=== PATIENT | female | born 1965 | race Caucasian/White ===

== ENCOUNTER 2016-11-15 11:23 | Emergency (ER) | payer MEDICAID ==
[~2016-11-15] VITALS: Wt 64.0 kg
[~2016-11-15 11:23] MED LIST: ATEN100T
[2016-11-15 14:18] LABS: BASOPHILS % 0.7 % (0.0-2.0); EOSINOPHILS # 0.4 10^3/ul (0.0-0.5); EOSINOPHILS % 6.3 % (0.0-7.0); HEMATOCRIT 42.8 % (37.0-47.0); HEMOGLOBIN 14.7 g/dl (12.0-16.0); LYMPHOCYTES # 2.2 10^3/ul (0.8-2.9); LYMPHOCYTES % 36.8 % (15.0-51.0); MEAN CORPUSCULAR HEMOGLOBIN 31.6 pg (29.0-33.0); MEAN CORPUSCULAR HGB CONC 34.4 g/dl (32.0-37.0); MEAN CORPUSCULAR VOLUME 91.8 fl (82.0-101.0); MEAN PLATELET VOLUME 7.3 fl (7.4-10.4); MONOCYTE # 0.4 10^3/ul (0.3-0.9); MONOCYTES % 6.4 % (0.0-11.0); NEUTROPHILS % 49.8 % (39.0-77.0); PLATELET COUNT 322 10^3/UL (140-440); RED BLOOD COUNT 4.66 10^6/ul (4.20-5.40); RED CELL DISTRIBUTION WIDTH 13.6 % (11.5-14.5)
[2016-11-15] MEDS ORDERED: LOSA50TA6 PO (14:28)
[2016-11-15] MEDS ORDERED: ASPI81TA3 PO (14:29)
[2016-11-15 14:33] LABS: CHLORIDE 100 mmol/L (97-110); INR 0.88; POTASSIUM 4.1 mmol/L (3.5-5.1); PROTIME 11.9 Sec (12.2-14.2); PT RATIO 0.9; SODIUM 143 mmol/L (135-144)
[2016-11-15 14:34] LABS: PARTIAL THROMBOPLASTIN TIME 27.8 Sec (25.0-35.0)
--- NOTE | 2016-11-15 14:34 | RADRPT ---
PROCEDURE: XR Chest. CLINICAL INDICATION: chest pain TECHNIQUE: Single frontal view of the chest was obtained COMPARISON: None FINDINGS: The heart and mediastinum are within normal limits. The lungs are clear. There is no pleural effusion or pneumothorax. RPTAT: AA IMPRESSION: No acute disease. .Mike Saenz MD, Date Time Electronically viewed and signed by .Mike Saenz MD, on 11/15/2016 14:34 .S/
[2016-11-15 14:36] LABS: ANION GAP 17 (8-16); BLOOD UREA NITROGEN 14 mg/dl (7-20); CARBON DIOXIDE 30 mmol/L (21-31); CREATININE 0.68 mg/dl (0.44-1.00); GLUCOSE 88 mg/dl (70-220)
[2016-11-15 14:57] LABS: CONDITION 1
[2016-11-15 15:21] LABS: TROPONIN-I < 0.012 ng/ml (0.00-0.12)
[2016-11-15 15:23] VITALS: BP 127/101; PULSE 71; RESP 18
--- NOTE | 2016-11-15 15:37 | ERD ---
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 no diaphoresis HPI This is a 51-year-old female who presents to the emergency room for evaluation of palpitations. Patient states that she intermittently feels her heart beating quickly. She states that she sometimes get a headache with these palpitations. And mild shortness of breath. She denies any temporal factors for these palpitations and came to the ER today for evaluation. ROS All systems reviewed and are negative except as per history of present illness. Medications Home Meds Reported Medications Aspirin* (Aspirin* Chew) 81 Mg Tab.chew, 81 MG PO DAILY, TAB.CHEW 11/15/16 Losartan Potassium* (Losartan Potassium*) 50 Mg Tablet, 50 MG PO DAILY, TAB 11/15/16 Discontinued Reported Medications Atenolol* (Atenolol*) 100 Mg Tablet 12/25/11 Allergies Allergies: Coded Allergies: No Known Allergy (Unverified , 12/25/11) PMhx/Soc History of Surgery: No Anesthesia Reaction: No Hx Neurological Disorder: No Hx Respiratory Disorders: No Hx Cardiac Disorders: Yes (HTN) Hx Psychiatric Problems: No Hx Miscellaneous Medical Probl: No Hx Alcohol Use: No Hx Substance Use: No Hx Tobacco Use: No Smoking Status: Never smoker Physical Exam Vitals Vital Signs Date Time Temp Pulse Resp B/P Pulse Ox O2 Delivery O2 Flow Rate FiO2 11/15/16 15:23 71 18 127/101 99 Room Air 11/15/16 14:44 73 18 113/93 99 Room Air 11/15/16 11:30 98.8 77 21 160/95 96 Physical Exam INITIAL VITAL SIGNS: Reviewed by me GENERAL: The patient is well developed and appropriate for usual state of health in no apparent distress HEENT: Pupils equal, round, and reactive to light. EOMI. There is no scleral icterus. NECK: C-spine is soft and supple, there is no meningismus. There is no cervical lymphadenopathy. LUNGS: Clear to auscultation bilaterally. There are no rales, wheezes or rhonchi. HEART: Regular rate with extra beat, no murmurs, clicks, rubs or gallops. ABDOMEN: Soft, non-tender, non-distended. There are bowel sounds in all four quadrants. No rebound or guarding. EXTREMITIES: There is no peripheral cyanosis or edema. No focal swelling or erythema. NEUROLOGICAL: The patient moves all four extremities with 5/5 strength. Cranial nerves II - XII are intact. Normal gait. Alert and oriented SKIN: There is no apparent rash or petechiae. HEME/LYMPHATIC: There is no evidence of excessive bruising or lymphedema. PSYCHIATRIC: The patient does not appear anxious or depressed. Result Diagram: 11/15/16 1346 11/15/16 1346 Results 24 hrs Laboratory Tests Test 11/15/16 13:46 Activated Partial Thromboplast Time 27.8Sec Anion Gap 17 Basophils # 0.010^3/ul Basophils % 0.7% Blood Morphology Comment Blood Urea Nitrogen 14mg/dl Calcium Level 10.0mg/dl Carbon Dioxide Level 30mmol/L Chloride Level 100mmol/L Creatinine 0.68mg/dl Eosinophils # 0.410^3/ul Eosinophils % 6.3% Glucose Level 88mg/dl Hematocrit 42.8% Hemoglobin 14.7g/dl INR International Normalized Ratio 0.88 Lymphocytes # 2.210^3/ul Lymphocytes % 36.8% Mean Corpuscular Hemoglobin 31.6pg Mean Corpuscular Hemoglobin Concent 34.4g/dl Mean Corpuscular Volume 91.8fl Mean Platelet Volume 7.3fl Monocytes # 0.410^3/ul Monocytes % 6.4% Neutrophils # 3.010^3/ul Neutrophils % 49.8% Nucleated Red Blood Cells # 0.010^3/ul Nucleated Red Blood Cells % 0.0/100WBC Platelet Count 62095^3/UL Potassium Level 4.1mmol/L Prothrombin Time 11.9Sec Prothrombin Time Ratio 0.9 Red Blood Count 4.6610^6/ul Red Cell Distribution Width 13.6% Sodium Level 143mmol/L Troponin I < 0.012ng/ml White Blood Count 6.010^3/ul Procedures/MDM EKG: Rate/Rhythm: [Normal Sinus Rhythm] QRS, ST, T-waves: [No changes consistent w/ acute ischemia] Impression: [No evidence of ischemia or arrhythmia] Chest X-ray 1V Interpreted by me: Soft Tissue: No acute abnormalities Bones: No acute abnormalities Mediastinum/Cardiac Silhouette/Lungs: [No acute abnormalities] This 51-year-old female presents to the ER for evaluation of palpitations. When I evaluated this patient I did auscultate palpitations. EKG does not reveal palpitations. This patient had lab work drawn including a troponin which is normal. X-ray is clear. She is hemodynamically stable at this time. This patient will be discharged at this time with instructions to follow-up with the primary care physician for referral for cardiology for Holter monitor placement. She verbalized understanding. She is in no acute distress will be discharged at this time Departure Diagnosis: Primary Impression: Heart palpitations Condition: Stable JONNY HUI DO Nov 15, 2016 15:37
== END 2016-11-15 15:52 | disposition home or self-care (01) ==
LOC: E/R 11:23
DX: R00.2 Palpitations (principal); I10 Essential (primary) hypertension; Z79.82 Long term (current) use of aspirin
CPT/HCPCS: 36415; 71010; 80048; 84484; 85025; 85610; 85730; 93005; Z7502